=== PATIENT | female | born 1980 | race Caucasian/White ===

== ENCOUNTER → 2022-11-05 | Outpatient (CLI) | payer OTHER ==
[~2022-11-05] MED LIST: AMIT1TAB11 PO; AYGE5TAB PO; BACL10TA2 OR; HYDR12.55 PO; IBUP800T OR; JOLESSA PO; LEUP375KIT IM; PREG25CA PO; SOMA350T PO; TOPA100T PO; TOPI25TA2 OR; VICO5TAB PO; ZANA4CAP OR; birth control pill PO
[2022-11-05 14:18] LABS: BASO # 0.1 10^3/uL (0.0-0.2); BASO % 0.8 % (0.0-1.0); EOS # 0.3 10^3/uL (0.0-0.5); HEMOGLOBIN 14.5 g/dl (12.0-15.5); LYMPH # 1.7 10^3/uL (1.5-5.0); LYMPH % 16.3 % (24.0-44.0); MEAN CORPUSCULAR VOLUME 90.9 fl (80.0-96.0); MONO # 0.6 10^3/uL (0.0-0.8); MONO % 5.5 % (2.0-8.0); NEUTROPHILS # 7.6 10^3/uL (1.5-8.5); PLATELET COUNT, AUTOMATED 419 10^3/uL (150-450); RED BLOOD COUNT 4.84 10^6/uL (4.00-5.40); WHITE BLOOD COUNT 10.3 10^3/uL (4.0-10.0)
[2022-11-05 15:05] LABS: ALKALINE PHOSPHATASE 90 U/L (46-116); ALT/SGPT 10 U/L (7.0-40); AST/SGOT 15 U/L (<34); BILIRUBIN,TOTAL 0.2 MG/DL (0.3-1.2); BLOOD UREA NITROGEN 14 MG/DL (9-23); CALCIUM LEVEL 8.6 MG/DL (8.5-10.1); CARBON DIOXIDE LEVEL 26 MMOL/L (20-31); CHLORIDE LEVEL 104 MMOL/L (98-107); CREATININE FOR GFR 0.69 MG/DL (0.55-1.30); GLOMERULAR FILTRATION RATE > 60.0 (>58); GLUCOSE, FASTING 130 MG/DL (60-100); IRON (FE) 111 UG/DL (50-170); PERCENT SATURATION 28.1 % (13.2-45.0); POTASSIUM SERUM 3.8 MMOL/L (3.5-5.1); SODIUM LEVEL 138 MMOL/L (136-145); TOTAL IRON BINDING CAPACITY 395 UG/DL (250-425); TOTAL PROTEIN 6.8 G/DL (5.7-8.2)
[2022-11-05 15:06] LABS: THYROID STIMULATING HORMONE 4.824 uIU/ML (0.55-4.78)
[2022-11-05 15:07] LABS: FREE T4 1.02 NG/DL (0.89-1.76)
== END ==
LOC: M PLALAB 11:06
PROVIDERS: ATTEND Physician Assistant
DX: L65.9 Nonscarring hair loss, unspecified (principal)

== ENCOUNTER 2025-11-18 05:30 | Emergency (ER) | payer OTHER ==
[~2025-11-18] VITALS: Ht 160 cm; Wt 113.5 kg
[2025-11-18] MEDS ORDERED: ISOVUE-370 76% 100 ML VIAL As Ordered ONE (05:33)
[2025-11-18 05:35] VITALS: TEMP 95.6
[2025-11-18] MEDS: ROCURONIUM BROMIDE 50MG/5ML VIAL IV SCH (05:45)
[2025-11-18] MEDS ORDERED: niCARdipine 40 MG IN 200 ML NACL IV BAG As Ordered ONE (05:45)
[2025-11-18] MEDS: ETOMIDATE 20 MG/10 ML VIAL IV STA (05:45)
[2025-11-18] MEDS: ONDANSETRON 4MG/2ML VIAL IV ONE (05:48)
[2025-11-18] MEDS: niCARdipine IV 40 MG in IV 1 EA IV ONE (05:50)
[2025-11-18 06:03] LABS: BASO # 0.1 10^3/uL (0.0-0.2); BASO % 0.7 % (0.0-1.0); EOS # 0.6 10^3/uL (0.0-0.5); EOS % 3.6 % (0.0-3.0); LYMPH # 2.8 10^3/uL (1.5-5.0); LYMPH % 18.1 % (24.0-44.0); MONO # 0.9 10^3/uL (0.0-0.8); MONO % 5.6 % (2.0-8.0); NEUTROPHILS # 11.0 10^3/uL (1.5-8.5); NEUTROPHILS % 71.5 % (36.0-66.0); PLATELET COUNT, AUTOMATED 461 10^3/uL (150-450)
[2025-11-18 06:25] LABS: INR 1.18
[2025-11-18] MEDS ORDERED: POTASSIUM CHLORIDE 10% LIQ 20MEQ/15ML UDC NG ONE (06:25)
[2025-11-18] MEDS: levETIRAcetam INJection 1,000 MG in IV 1 EA IV ONE (07:05)
[2025-11-18] MEDS: KCL 10MEQ/100ML SWI (KRUN) 10 MEQ in IV 1 EA IV ONE (07:37)
[2025-11-18] MEDS: niCARdipine IV 40 MG in IV 1 EA IV STA (08:28)
[2025-11-18 08:32] VITALS: BP 127/77; TEMP 97.1; O2SAT 99
[2025-11-18] MEDS ORDERED: KCL 10MEQ/100ML SWI (KRUN) 10 MEQ in IV 1 EA IV ONE (09:00)
== END 2025-11-18 08:35 | disposition short-term general hospital (02) ==
LOC: M ED 05:30
DX: I61.5 Nontraumatic intracerebral hemorrhage, intraventricular (principal); I10 Essential (primary) hypertension; Z86.73 Personal history of transient ischemic attack (TIA), and cerebral infarction without residual deficits; R91.8 Other nonspecific abnormal finding of lung field; Z79.3 Long term (current) use of hormonal contraceptives; Z79.899 Other long term (current) drug therapy
CPT/HCPCS: 31500; 51702; 70450; 71045; 80047; 85025; 85610; 85730; 93005; 93041; 94760; 96365; 96367; 96368; 96375; 99291; 99292; J1953; J2405